=== PATIENT | male | born 1980 | race American Indian/Alaskan Native ===

== ENCOUNTER 2018-09-04 18:51 | Inpatient (IN) | payer OTHER ==
--- NOTE | 2018-09-04 19:02 | Emergency Department Report ---
Blank Doc - Documentation Documentation: This is a 38-year-old male with hx of Chorns disease presents with n/v abdominal pain. Stated has blood in vomiting. This initial assessment/diagnostic orders/clinical plan/treatment(s) is/are subject to change based on patient's health status, clinical progression and re-assessment by fellow clinical providers in the ED. Further treatment and workup at subsequent clinical providers discretion. Patient/guardians urged not to elope from the ED as their condition may be serious if not clinically assessed and managed. Initial orders include: 1- Patient sent to MAIN ED for further evaluation and treatment 2- labs 3- XRAY 4- UA
[2018-09-04] MEDS ORDERED: NACL 0.9% 1000 ML 1,000 ML IV ONE (19:24)
[2018-09-04] MEDS ORDERED: ZOFRAN IV ONE (19:24)
[2018-09-04] MEDS ORDERED: DILAUDID IV ONE ×2 (19:25→21:10)
[2018-09-04] MEDS ORDERED: PROTONIX IV ONE (20:24)
--- NOTE | 2018-09-04 20:24 | XRay Report ---
PROCEDURE: XR ABD SERIES W CXR 1V TECHNIQUE: Abdominal series complete, including supine and upright AP views of the abdomen and front al chest. HISTORY: abd pain COMPARISONS: None . FINDINGS: Heart: Normal. Mediastinum/Vessels: Normal. Lungs/Pleural space: No infiltrate, effusion, or pneumothorax. Bowel gas pattern: Bowel gas pattern is nonobstructive. There is large volume of stool the colon . Masses or calcifications: None . Bony structures: No acute osseous abnormality . Other: No free intraperitoneal air . IVC filter is present IMPRESSION: Nonobstructive bowel gas pattern. Large volume of stool seen in the colon. This document is electronically signed by Guadalupe Thompson MD., September 04 2018 08:22:30 PM ET
[2018-09-04 20:30] LABS: Basophils # (Auto) 0.1 K/mm3 (0.0-0.1); Basophils % (Auto) 1.5 % (0.0-1.8); Eosinophils % (Auto) 0.5 % (0.0-4.3); Hematocrit 35.2 % (35.5-45.6); Hemoglobin 11.4 gm/dl (11.8-15.2); Lymphocytes % (Auto) 16.5 % (13.4-35.0); Mean Corpuscular HGB Conc 32 % (32-34); Mean Corpuscular Volume 80 fl (84-94); Monocytes # (Auto) 0.4 K/mm3 (0.0-0.8); Monocytes % (Auto) 7.5 % (0.0-7.3); Platelet Count 249 K/mm3 (140-440); Red Blood Count 4.38 M/mm3 (3.65-5.03)
[2018-09-04 20:36] LABS: Red Cell Distribution Width 21.7 % (13.2-15.2)
[2018-09-04 20:47] LABS: Alanine Aminotransferase 20 units/L (7-56); Albumin 3.6 g/dL (3.9-5); BUN/Creatinine Ratio 10; Blood Urea Nitrogen 6 mg/dL (9-20); Calcium 9.8 mg/dL (8.4-10.2); Hemolysis Index 38
[2018-09-04] MEDS: PROTONIX 80 MG in NACL 0.9% 100 ML IV SCH (21:18)
[2018-09-04 21:23] LABS: INR 1.08 (0.87-1.13); Partial Thromboplastin Time 27.2 Sec. (24.2-36.6)
--- NOTE | 2018-09-04 21:23 | Emergency Department Report ---
ED GI Bleed HPI - General Chief complaint: GI Bleed Stated complaint: SPITTING UP BLOOD Time Seen by Provider: 09/04/18 19:00 Source: patient Mode of arrival: Wheelchair Limitations: No Limitations - History of Present Illness Initial comments: 38-year-old male reports history of Crohn's disease. Patient states he has been having bloody emesis since this morning. Denies any blood in his stool, reports epigastric pain. Patient states he is currently on Eliquis is for PE. Patient [facility] complaint: gross hematemesis -: This morning Location: epigastric Radiation: other (diffuse abdomen) Severity scale (0 -10): 9 Quality: cramping Consistency: constant Improves with: none Worsens with: none Context: history of GI bleed Associated Symptoms: abdominal pain, nausea, vomiting - Related Data Home Medications Medication Instructions Recorded Confirmed Last Taken Mesalamine [Pentasa] 250 mg PO QID 01/19/16 09/17/16 Unknown Previous Rx's Medication Instructions Recorded Last Taken Type Ondansetron [Zofran Odt] 4 mg PO Q8HR #12 tab.rapdis 09/21/16 Unknown Rx Oxycodone HCl/Acetaminophen 1 each PO Q6HR PRN #20 tablet 09/21/16 Unknown Rx [Percocet 7.5/325 mg] Prednisone [predniSONE 10 mg 10 mg PO .TAPER #1 tab.ds.pk 09/21/16 Unknown Rx (6-Day Pack, 21 Tabs)] Allergies Allergy/AdvReac Type Severity Reaction Status Date / Time morphine Allergy Itching Verified 01/27/13 02:21 ED Review of Systems ROS: Stated complaint: SPITTING UP BLOOD Other details as noted in HPI Comment: All other systems reviewed and negative Constitutional: denies: chills, fever Gastrointestinal: abdominal pain, nausea, vomiting, hematemesis. denies: diarrhea, melena, hematochezia ED Past Medical Hx - Past Medical History Previous Medical History?: Yes Hx Congestive Heart Failure: No Hx Diabetes: No Hx Deep Vein Thrombosis: No Hx Asthma: No Hx COPD: No Additional medical history: chrons / SBO - Surgical History Past Surgical History?: Yes Hx Pacemaker: No Hx Internal Defibrillator: No Hx Cholecystectomy: (yes. 2010) Additional Surgical History: SBO - Social History Smoking Status: Never Smoker Substance Use Type: None - Medications Home Medications: Home Medications Medication Instructions Recorded Confirmed Last Taken Type Mesalamine [Pentasa] 250 mg PO QID 01/19/16 09/17/16 Unknown History Ondansetron [Zofran Odt] 4 mg PO Q8HR #12 tab.rapdis 09/21/16 Unknown Rx Oxycodone HCl/Acetaminophen 1 each PO Q6HR PRN #20 tablet 09/21/16 Unknown Rx [Percocet 7.5/325 mg] Prednisone [predniSONE 10 mg 10 mg PO .TAPER #1 tab.ds.pk 09/21/16 Unknown Rx (6-Day Pack, 21 Tabs)] ED Physical Exam - General Limitations: No Limitations General appearance: alert, in no apparent distress - Head Head exam: Present: atraumatic, normocephalic - Eye Eye exam: Present: normal appearance - ENT ENT exam: Present: other (dried blood on lips) - Neck Neck exam: Present: normal inspection - Respiratory Respiratory exam: Present: normal lung sounds bilaterally. Absent: respiratory distress - Cardiovascular Cardiovascular Exam: Present: normal rhythm, tachycardia - GI/Abdominal GI/Abdominal exam: Present: soft, tenderness (mild epigastric tenderness). Absent: distended - Extremities Exam Extremities exam: Present: normal inspection - Neurological Exam Neurological exam: Present: alert, oriented X3 - Psychiatric Psychiatric exam: Present: normal affect, normal mood - Skin Skin exam: Present: warm, dry, intact, normal color ED Course Vital Signs 09/04/18 09/04/18 09/04/18 19:07 19:56 20:26 Temperature 97.9 F Pulse Rate 109 H Respiratory 18 16 18 Rate Blood Pressure 176/133 O2 Sat by Pulse 98 Oximetry 09/04/18 09/04/18 09/04/18 20:30 20:45 21:00 Temperature Pulse Rate 105 H 106 H 110 H Respiratory 27 H 26 H 28 H Rate Blood Pressure 191/116 194/119 184/115 O2 Sat by Pulse 100 100 100 Oximetry 09/04/18 09/04/18 09/04/18 21:10 21:15 21:30 Temperature Pulse Rate 106 H 101 H Respiratory 18 27 H 15 Rate Blood Pressure 167/89 188/121 O2 Sat by Pulse 96 97 Oximetry 06/17/19 06/17/19 06/17/19 21:40 21:45 22:00 Temperature Pulse Rate 100 H 105 H Respiratory 18 25 H 19 Rate Blood Pressure 182/112 174/126 O2 Sat by Pulse 99 95 100 Oximetry 09/04/18 09/04/18 09/04/18 22:14 22:15 22:16 Temperature Pulse Rate 100 H 101 H Respiratory 18 22 Rate Blood Pressure 193/123 195/111 O2 Sat by Pulse 98 Oximetry 09/04/18 09/04/18 09/04/18 22:30 22:44 23:40 Temperature Pulse Rate 102 H 100 H Respiratory 26 H 20 23 Rate Blood Pressure 174/103 150/95 O2 Sat by Pulse 98 98 Oximetry 09/04/18 23:52 Temperature Pulse Rate Respiratory Rate Blood Pressure 174/103 O2 Sat by Pulse 88 Oximetry - Consultations Consultation #1: 09/04/18 21:23 Spoke w/ Dr Bauer. Keep NPO, will scope in the AM. ED Medical Decision Making - Lab Data Result diagrams: 09/05/18 03:43 09/05/18 03:43 - Radiology Data Radiology results: report reviewed, image reviewed - Medical Decision Making 38-year-old male with Crohn's disease presents to ED with report of 4 episodes of hematemesis. Hemoglobin 11.4. Pt mildly tachycardic. Protonix bolus and drip administered. Pain meds given. Abdominal series shows no acute abnormality such as bowel obstruction or free air. Spoke w/ Dr Bauer, GI, will see in the AM. Pt admitted to Dr Olivera, hospitalist. - Differential Diagnosis alton branham, ulcer, perforated viscus Critical Care Time: Yes Critical care time in (mins) excluding proc time.: 35 Critical care attestation.: If time is entered above; I have spent that time in minutes in the direct care of this critically ill patient, excluding procedure time. Critical Care Time: 35 minutes ED Disposition Clinical Impression: Upper GI bleed Disposition: OP ADMIT IP TO THIS HOSP Is pt being admited?: Yes Condition: Stable Time of Disposition: 21:23
[2018-09-04 22:14] LABS: Bilirubin,Urine NEG (Negative); Blood,Urine NEG (Negative); Color,Urine Yellow (Yellow); Protein,Urine <15 mg/dL mg/dL (Negative); Urobilinogen,Urine < 2.0 mg/dL (<2.0); WBC,Urine < 1.0 /HPF (0.0-6.0)
[2018-09-04] MEDS: DILAUDID IV PRN (22:14)
[2018-09-04] MEDS: APRESOLINE IV PRN (22:15)
[2018-09-04] MEDS: NACL 0.45% 1000 ML 1,000 ML IV SCH (22:16)
[2018-09-04] MEDS ORDERED: SODIUM CHLORIDE FLUSH SYRINGE 10 ML IV PRN (22:47)
[2018-09-04] MEDS ORDERED: TYLENOL PO PRN (22:47)
--- NOTE | 2018-09-04 22:50 | History and Physical Report ---
History of Present Illness Date of examination: 09/04/18 History of present illness: 38-year-old man with a history of Crohn's disease, PE/ DVT on eliquis, recent endocarditis with tricuspid valve replacement, small bowel obstructions comes to emergency room with complaints of vomiting blood at least 6 episodes. Also p donald abdominal pain located in the left mid abdomen which she describes as a sharp pain, intermittent over 5 minutes then became constant and 4 PM, intensity 8/10, no radiation, better with IV Dilaudid given in the emergency room and he cannot identify exacerbating factors. Review of systems Constitutional: no weight loss, chills, fever Ears, eyes, nose, mouth and throat: no nasal congestion, no nasal discharge, no sinus pressure, no vision change, no red eye. Neck: No neck pain or rigidity. Cardiovascular: no palpitations, chest pain Respiratory: no cough, shortness of breath Gastrointestinal: no hematochezia Genitourinary : no frequency , no hematuria Musculoskeletal: no joint swelling or muscle ache Integumentary: no rash, no pruritis Neurological: no parathesias, no focal weakness Endocrine: no cold or heat intolerance, no polyuria or polydipsia Hematologic/Lymphatic: no easy bruising, no easy bleeding, no gland swelling Allergic/Immunologic: no urticaria, no angioedema. PAST MEDICAL HISTORY:Crohn's disease, PE DVT on eliquis, recent endocarditis, small bowel obstructions PAST SURGICAL HISTORY: tricuspid valve replacement, cholecystectomy, Part of the small bowel was removed secondary to obstruction SOCIAL HISTORY: Denies alcohol, tobacco, drugs FAMILY HISTORY: Hypertension Medications and Allergies Allergies Allergy/AdvReac Type Severity Reaction Status Date / Time morphine Allergy Itching Verified 01/27/13 02:21 Home Medications Medication Instructions Recorded Confirmed Last Taken Type Mesalamine [Pentasa] 250 mg PO QID 01/19/16 09/17/16 Unknown History Ondansetron [Zofran ODT TAB] 4 mg PO Q8HR #12 tab.rapdis 09/21/16 Unknown Rx Oxycodone HCl/Acetaminophen 1 each PO Q6HR PRN #20 tablet 09/21/16 Unknown Rx [Percocet 7.5/325 mg] Prednisone [predniSONE 10 mg 10 mg PO .TAPER #1 tab.ds.pk 09/21/16 Unknown Rx (6-Day Pack, 21 Tabs)] Active Meds: Active Medications Acetaminophen (Tylenol) 650 mg PO Q4H PRN PRN Reason: Pain MILD(1-3)/Fever >100.5/GARCIA Hydralazine HCl (Apresoline) 5 mg IV Q6H PRN PRN Reason: Hypertension Last Admin: 09/04/18 22:15 Dose: 5 mg Documented by: Hydromorphone HCl (Dilaudid) 1 mg IV Q4H PRN PRN Reason: Pain , Severe (7-10) Last Admin: 09/04/18 22:14 Dose: 1 mg Documented by: Pantoprazole Sodium 80 mg/ (Sodium Chloride) 100 mls @ 10 mls/hr IV DIRECT HARMONY Last Admin: 09/04/18 21:18 Dose: 8 mg/hr, 10 mls/hr Documented by: Sodium Chloride (Nacl 0.45% 1000 Ml) 1,000 mls @ 100 mls/hr IV DIRECT HARMONY Last Admin: 09/04/18 22:16 Dose: 100 mls/hr Documented by: Ondansetron HCl (Zofran) 4 mg IV Q4H PRN PRN Reason: Nausea And Vomiting Sodium Chloride (Sodium Chloride Flush Syringe 10 Ml) 10 ml IV BID HARMONY Sodium Chloride (Sodium Chloride Flush Syringe 10 Ml) 10 ml IV PRN PRN PRN Reason: LINE FLUSH Exam - Physical Exam Narrative exam: General Apperance: The patient lying in bed, breathing comfortable HEENT: Normocephalic, atraumatic. Pupils equally round and reactive to light, EOMI, no sclericterus or JVD or thyromegaly or nodule. , no carotid bruit, mucous membranes moist, no exudate or erythema Heart: S1-S2, regular is rhythm Lungs: Clear to auscultation bilaterally, breathing comfortable Abdomen: Positive bowel sounds, soft, nontender, nondistended, no organomegaly Extremities: No edema cyanosis clubbing Skin: no rash, nodule, warm and dry Neuro: cranial nerves 2-12 intact, speech is fluent, motor/sensory intact - Constitutional Vitals: Temp Pulse Resp BP Pulse Ox 97.9 F 100 H 18 193/123 99 09/04/18 19:07 09/04/18 22:15 09/04/18 22:14 09/04/18 22:15 09/04/18 21:40 Results - Labs CBC & Chem 7: 09/05/18 14:53 09/05/18 03:43 Labs: Abnormal lab results 09/04/18 09/04/18 Range/Units 20:00 20:00 Hgb 11.4 L (11.8-15.2) gm/dl Hct 35.2 L (35.5-45.6) % MCV 80 L (84-94) fl MCH 26 L (28-32) pg RDW 21.7 H (13.2-15.2) % [place] % (Auto) 7.5 H (0.0-7.3) % Lymph # 1.0 L (1.2-5.4) K/mm3 Seg Neutrophils % 74.0 H (40.0-70.0) % Potassium 3.3 L (3.6-5.0) mmol/L BUN 6 L (9-20) mg/dL Creatinine 0.6 L (0.8-1.5) mg/dL Glucose 139 H (75-100) mg/dL Albumin 3.6 L (3.9-5) g/dL - Imaging and Cardiology EKG: image reviewed Chest x-ray: report reviewed Abdominal x-ray: report reviewed Assessment and Plan Assessment Hematemesis Abdominal pain Elevated blood pressure Hypokalemia History of PE, DVT Crohn's disease History of endocarditis Plan Admit to medicine Continue Protonix drip, consult GI, check serial hemoglobin, hold eliquis Monitor blood pressure, start IV hydralazine, first dose now Check CT abdomen and pelvis, replete potassium IV dilaudid,iv fluid, DVT prophylaxis
--- NOTE | 2018-09-04 23:29 | Cat Scan Report ---
PROCEDURE: CT ABDOMEN PELVIS W CON TECHNIQUE: Computerized axial tomography of the abdomen and pelvis was performed after the administr ation of IV iodinated nonionic contrast. CT DOSE LENGTH PRODUCT: 3651.9 mGycm HISTORY: abdominal pain COMPARISONS: September 17, 2016 . FINDINGS: Visualized lower thorax: Mild atelectasis bilateral lower lungs.. Liver: Normal size and attenuation. Spleen: Normal size and attenuation. Gallbladder and biliary system: The gallbladder is absent. No dilatation of the biliary ductal system . Pancreas: Normal. Adrenals: Normal. Kidneys: Normal. GI tract: No obstruction is seen. There has been surgery in the mid bowel. There are surgical clips in the right lower quadrant, appendectomy is suspected. There is moderate fecal debris throughout the colon. .. Lymph nodes and mesentery: There are multiple scattered small lymph nodes and mesentery.. Vasculature: There is an inferior vena cava filter. Bladder: Normal. Reproductive organs: Normal. Peritoneum: No free fluid. Musculoskeletal structures: Mild degenerative changes of the spine. No acute osseous abnormality.. Other: None. IMPRESSION: There is no evidence of intestinal or urinary tract obstruction. No ileus or enteritis. There is mode rate fecal debris throughout the colon. Surgical clips in the right lower quadrant are most consisten t with previous appendectomy. Previous cholecystectomy . This document is electronically signed by Julieth Griffiths DO., September 04 2018 11:27:18 PM ET
[2018-09-04] MEDS ORDERED: KCL 10MEQ/100ML 10 MEQ/100 ML BAG IV ONE (23:30)
[2018-09-04] MEDS: KCL 10MEQ/100ML 10 MEQ/100 ML BAG IV SCH (23:43)
[2018-09-05 00:55] LABS: Hematocrit 35.1 % (35.5-45.6); Hemoglobin 11.5 gm/dl (11.8-15.2)
[2018-09-05] MEDS: DILAUDID IV PRN ×4 (02:08→13:18)
[2018-09-05] MEDS: ZOFRAN IV PRN ×3 (02:08→13:19)
[2018-09-05] MEDS: KCL 10MEQ/100ML 10 MEQ/100 ML BAG IV SCH (02:08)
[2018-09-05] MEDS: APRESOLINE IV PRN (03:39)
[2018-09-05 04:12] LABS: Basophils # (Auto) 0.1 K/mm3 (0.0-0.1); Basophils % (Auto) 1.1 % (0.0-1.8); Eosinophils # (Auto) 0.1 K/mm3 (0.0-0.4); Eosinophils % (Auto) 1.9 % (0.0-4.3); Hematocrit 31.3 % (35.5-45.6); Hemoglobin 10.3 gm/dl (11.8-15.2); Lymphocytes # (Auto) 1.4 K/mm3 (1.2-5.4); Lymphocytes % (Auto) 30.3 % (13.4-35.0); Mean Corpuscular HGB Conc 33 % (32-34); Mean Corpuscular Volume 78 fl (84-94); Monocytes # (Auto) 0.6 K/mm3 (0.0-0.8); Platelet Count 205 K/mm3 (140-440); Red Cell Distribution Width 21.3 % (13.2-15.2)
[2018-09-05 04:24] LABS: BUN/Creatinine Ratio 12; Blood Urea Nitrogen 6 mg/dL (9-20); Calcium 9.5 mg/dL (8.4-10.2); Hemolysis Index 49
[2018-09-05] MEDS: NACL 0.45% 1000 ML 1,000 ML IV SCH (06:19)
[2018-09-05] MEDS: PROTONIX 80 MG in NACL 0.9% 100 ML IV SCH (07:32)
[2018-09-05] MEDS ORDERED: APRESOLINE IV PRN (07:57)
[2018-09-05 08:25] VITALS: BP 168/120
[2018-09-05] MEDS ORDERED: SODIUM CHLORIDE FLUSH SYRINGE 10 ML IV SCH (10:00)
--- NOTE | 2018-09-05 12:14 | Gastroenterology Consultation ---
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 He was dx with Crohn's in 2000 while in the and has had multiple abdominal surgeries (~5-6) including CCY, hernia repairs, and small bowel resections for obstruction (no prior colon resection per pt report). He receives all of his care for his [facility] at [facility] and is currently being maintained on mesalamine. The patient is well known to our service from numerous admissions at multiple hospitals for the same chronic recurrent symptoms of abd pain, N/V, and recurrent hematemesis. He was underwent an extensive prior GI workup to include multiple scopes (EGDs on 03/17/18, 12/02/17, 12/01/17, 11/30/17, 07/2017, 06/2017, 01/2017, 12/2016, 12/15/2016, 09/2016, 04/2016, 03/09/2016, 01/2016, 05/2015, 06/03/2015, 08/25/2015, 01/19/2016, 07/2015, 03/2015, 12/18/2014, 12/19/2014, 12/24/2014, 09/2014, 09/2012 and colonoscopy 12/2014, along with multiple CT scans). He was last seen at [facility] on 04/11/[address] Meza for same symptoms with symptoms resolving with conservative management (of note during this admission, there was concern by RN in ED that patient obtained blood from a missing vial and deposited it into his emesis claiming an episode of hematemesis). This morning patient was resting in bed w/o acute distress. Reports continued abdominal pain w/o change from prior episodes, along with continued hematemesis x 1 episode this am, however there has been no witnessed signs of bleeding per nursing. Denies CP, SOB, blood in stool or LGI symptoms. States he has been compliant with taking medications for IBD at home. Past History Past Medical History: other (see HPI) Past Surgical History: Other (see HPI) Social history: prescription drug abuse, other (previous UDS +marijuana). denies: alcohol abuse Family history: hypertension Medications and Allergies Allergies Allergy/AdvReac Type Severity Reaction Status Date / Time morphine Allergy Itching Verified 01/27/13 02:21 Home Medications Medication Instructions Recorded Confirmed Last Taken Type Mesalamine [Pentasa] 250 mg PO QID 01/19/16 09/17/16 Unknown History Ondansetron [Zofran ODT TAB] 4 mg PO Q8HR #12 tab.rapdis 09/21/16 Unknown Rx Oxycodone HCl/Acetaminophen 1 each PO Q6HR PRN #20 tablet 09/21/16 Unknown Rx [Percocet 7.5/325 mg] Prednisone [predniSONE 10 mg 10 mg PO .TAPER #1 tab.ds.pk 09/21/16 Unknown Rx (6-Day Pack, 21 Tabs)] Active Meds: Active Medications Acetaminophen (Tylenol) 650 mg PO Q4H PRN PRN Reason: Pain MILD(1-3)/Fever >100.5/GARCIA Hydralazine HCl (Apresoline) 10 mg IV Q4HR PRN PRN Reason: Hypertension Last Admin: 09/05/18 08:11 Dose: 10 mg Documented by: Hydromorphone HCl (Dilaudid) 1 mg IV Q4H PRN PRN Reason: Pain , Severe (7-10) Last Admin: 09/05/18 09:23 Dose: 1 mg Documented by: Pantoprazole Sodium 80 mg/ (Sodium Chloride) 100 mls @ 10 mls/hr IV DIRECT HARMONY Last Admin: 09/05/18 07:32 Dose: 8 mg/hr, 10 mls/hr Documented by: Sodium Chloride (Nacl 0.45% 1000 Ml) 1,000 mls @ 100 mls/hr IV DIRECT HARMONY Last Admin: 09/05/18 06:19 Dose: 100 mls/hr Documented by: Ondansetron HCl (Zofran) 4 mg IV Q4H PRN PRN Reason: Nausea And Vomiting Last Admin: 09/05/18 09:23 Dose: 4 mg Documented by: Sodium Chloride (Sodium Chloride Flush Syringe 10 Ml) 10 ml IV BID HARMONY Last Admin: 09/05/18 09:32 Dose: 10 ml Documented by: Sodium Chloride (Sodium Chloride Flush Syringe 10 Ml) 10 ml IV PRN PRN PRN Reason: LINE FLUSH medications reviewed/updated as required Review of Systems - Review of Systems All systems: negative Gastrointestinal: abdominal pain, nausea, vomiting, hematemesis Exam - Constitutional Vital Signs: Temp Pulse Resp BP Pulse Ox 98.5 F 111 H 16 168/120 99 09/05/18 07:44 09/05/18 08:11 09/05/18 07:44 09/05/18 08:11 09/05/18 09:42 General appearance: no acute distress - Respiratory Respiratory effort: normal - Cardiovascular Rhythm: other (tachycardia) - Gastrointestinal General gastrointestinal: Present: soft, tender (generalized slight TTP), non- distended, normal bowel sounds, other (+scars from prior surgeries) - Neurologic Neurological: alert and oriented x3 - Labs CBC & Chem 7: 09/05/18 03:43 09/05/18 03:43 Lab Results: Laboratory Results - last 24 hr 09/04/18 09/04/18 09/04/18 20:00 20:00 20:51 WBC 5.8 RBC 4.38 Hgb 11.4 L Hct 35.2 L MCV 80 L MCH 26 L MCHC 32 RDW 21.7 H Plt Count 249 Lymph % (Auto) 16.5 Quay % (Auto) 7.5 H Eos % (Auto) 0.5 Baso % (Auto) 1.5 Lymph # 1.0 L Quay # 0.4 Eos # 0.0 Baso # 0.1 Seg Neutrophils % 74.0 H Seg Neutrophils # 4.3 PT 13.7 INR 1.08 APTT 27.2 Sodium 138 Potassium 3.3 L Chloride 102.4 Carbon Dioxide 22 Anion Gap 17 BUN 6 L Creatinine 0.6 L Estimated GFR > 60 BUN/Creatinine Ratio 10 Glucose 139 H Calcium 9.8 Total Bilirubin 1.20 AST 28 ALT 20 Alkaline Phosphatase 78 Total Protein 7.7 Albumin 3.6 L Albumin/Globulin Ratio 0.9 Lipase 14 Urine Color Urine Turbidity Urine pH Ur Specific [place] Urine Protein Urine Glucose (UA) Urine Ketones Urine Blood Urine Nitrite Urine Bilirubin Urine Urobilinogen Ur Leukocyte Esterase Urine WBC (Auto) Urine RBC (Auto) U Epithel Cells (Auto) Blood Type Antibody Screen 09/04/18 09/04/18 09/05/18 21:11 21:30 00:25 WBC RBC Hgb 11.5 L Hct 35.1 L MCV MCH MCHC RDW Plt Count Lymph % (Auto) Quay % (Auto) Eos % (Auto) Baso % (Auto) Lymph # Quay # Eos # Baso # Seg Neutrophils % Seg Neutrophils # PT INR APTT Sodium Potassium Chloride Carbon Dioxide Anion Gap BUN Creatinine Estimated GFR BUN/Creatinine Ratio Glucose Calcium Total Bilirubin AST ALT Alkaline Phosphatase Total Protein Albumin Albumin/Globulin Ratio Lipase Urine Color Yellow Urine Turbidity Clear Urine pH 6.0 Ur Specific [place] 1.010 Urine Protein <15 mg/dl Urine Glucose (UA) Neg Urine Ketones Neg Urine Blood Neg Urine Nitrite Neg Urine Bilirubin Neg Urine Urobilinogen < 2.0 Ur Leukocyte Esterase Neg Urine WBC (Auto) < 1.0 Urine RBC (Auto) 1.0 U Epithel Cells (Auto) < 1.0 Blood Type A POSITIVE Antibody Screen Negative 09/05/18 09/05/18 03:43 03:43 WBC 4.8 RBC 4.00 Hgb 10.3 L Hct 31.3 L MCV 78 L MCH 26 L MCHC 33 RDW 21.3 H Plt Count 205 Lymph % (Auto) 30.3 Quay % (Auto) 12.0 H Eos % (Auto) 1.9 Baso % (Auto) 1.1 Lymph # 1.4 Quay # 0.6 Eos # 0.1 Baso # 0.1 Seg Neutrophils % 54.7 Seg Neutrophils # 2.6 PT INR APTT Sodium 140 Potassium 3.8 Chloride 105.4 Carbon Dioxide 23 Anion Gap 15 BUN 6 L Creatinine 0.5 L Estimated GFR > 60 BUN/Creatinine Ratio 12 Glucose 89 Calcium 9.5 Total Bilirubin AST ALT Alkaline Phosphatase Total Protein Albumin Albumin/Globulin Ratio Lipase Urine Color Urine Turbidity Urine pH Ur Specific [place] Urine Protein Urine Glucose (UA) Urine Ketones Urine Blood Urine Nitrite Urine Bilirubin Urine Urobilinogen Ur Leukocyte Esterase Urine WBC (Auto) Urine RBC (Auto) U Epithel Cells (Auto) Blood Type Antibody Screen Assessment and Plan 1.recurrent hematemesis 2.chronic anemia 3.abdominal pain-chronic 4.N/V-recurrent 5.H/o Crohn's disease- (dx 2000; h/o multiple prior abdominal surgeries 2/2 SBO; no colon resection; [facility]; currently maintained on mesalamine; multiple prior scope by our service with no e/o IBD) 6.H/o DVT (s/p IVC filter) 7.medical noncompliance/drug seeking behavior (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) -afebrile -WBC WNL -H/H 10.3/31.3-stable according to review of prior labs -continue to monitor H/H and transfuse as needed -no active signs of bleeding since admission per nursing -INR WNL -LFTs and lipase WNL -abd CT negative for acute process-no obstruction -etiology- likely multifactorial (multiple prior abdominal surgeries (adhesions?), substance abuse, etc.) Patient has a hx of chronic recurrent abd pain, N/V, and hematemesis with an extensive prior GI workup as detailed in HPI -no plans for repeat scope at this time unless overt bleeding develops- will treat with supportive care at this time -continue PPI BID and antiemetics PRN -avoid narcotics for this may exacerbate symptoms of N/V by delaying gastric emptying -start on clears and advance diet as tolerated -continue supportive care -substance abuse cessation discussed with patient -if H/H remains stable, patient is okay to be d/c per GI standpoint with f/u with primary GI <UZAIR CONLEY - Last Filed: 09/05/18 23:47> Exam - Constitutional Vital Signs: Temp Pulse Resp BP Pulse Ox 98.5 F 111 H 16 168/120 99 09/05/18 07:44 09/05/18 08:11 09/05/18 07:44 09/05/18 08:11 09/05/18 09:42 - Labs CBC & Chem 7: 09/05/18 14:53 09/05/18 03:43 Lab Results: Laboratory Results - last 24 hr 09/05/18 09/05/18 09/05/18 00:25 03:43 03:43 WBC 4.8 RBC 4.00 Hgb 11.5 L 10.3 L Hct 35.1 L 31.3 L MCV 78 L MCH 26 L MCHC 33 RDW 21.3 H Plt Count 205 Lymph % (Auto) 30.3 Quay % (Auto) 12.0 H Eos % (Auto) 1.9 Baso % (Auto) 1.1 Lymph # 1.4 Quay # 0.6 Eos # 0.1 Baso # 0.1 Seg Neutrophils % 54.7 Seg Neutrophils # 2.6 Sodium 140 Potassium 3.8 Chloride 105.4 Carbon Dioxide 23 Anion Gap 15 BUN 6 L Creatinine 0.5 L Estimated GFR > 60 BUN/Creatinine Ratio 12 Glucose 89 Calcium 9.5 09/05/18 14:53 WBC RBC Hgb 12.3 Hct 38.5 D MCV MCH MCHC RDW Plt Count Lymph % (Auto) Quay % (Auto) Eos % (Auto) Baso % (Auto) Lymph # Quay # Eos # Baso # Seg Neutrophils % Seg Neutrophils # Sodium Potassium Chloride Carbon Dioxide Anion Gap BUN Creatinine Estimated GFR BUN/Creatinine Ratio Glucose Calcium Assessment and Plan Advanced practitioner's assessment and plan evaluated and I agree with the plan, with the following additions: pt not in acute distress when seen this AM, has highly concerning history that raises the suspicion of drug seeking behavior -- this does not preclude severe pathology from being present but makes it much more challenging to assess the patient. Given the history and objectively attainable data, recommend monitor Hgb and avoid pain meds and if Hgb stable ok for DC with OPD f/u
[2018-09-05 15:21] LABS: Hematocrit 38.5 % (35.5-45.6); Hemoglobin 12.3 gm/dl (11.8-15.2)
--- NOTE | 2018-09-05 15:34 | Discharge Summary ---
Providers - Providers Date of Admission: 09/04/18 22:47 Attending physician: JENNIFRE BOWLES MD 09/04/18 22:47 Consult to Physician [CONS] Routine Comment: Dr. Pichardo spoke with Dr. Bauer @ [id number] Consulting Provider: DRAKE BAUER Physician Instructions: Reason For Exam: ugib Primary care physician: [facility] Hospitalization Reason for admission: GI bleed, abdominal pain Condition: Stable Hospital course: 38-year-old man with a history of Crohn's disease, PE/ DVT on eliquis, recent endocarditis with tricuspid valve replacement, small bowel obstructions comes to emergency room with complaints of vomiting blood at least 6 episodes. Also plain abdominal pain located in the left mid abdomen which she describes as a sharp pain, intermittent over 5 minutes then became constant and 4 PM, intensity 8/10, no radiation, better with IV Dilaudid given in the emergency room and he cannot identify exacerbating factors. Patient was admitted to the floor and GI was consulted. Per GI the patient left AMA from [facility] the day before admission. Patient had multiple admissions to different hospitals and had extensive GI work up and non revealing. He had also multiple surgeries. per his record from another hospital patient has drug seeking behavior. While in the hospital patient said he had vomiting of blood but not witnessed by hospital staff. He was asking for more pain medicine. H/H stable. GI cleared him for discharge. Patient was hemodynamically stable at the time of discharge. Disposition: TO HOME OR SELFCARE Time spent for discharge: 32 minutes - Discharge Diagnoses (1) Upper GI hemorrhage Status: Acute (2) Abdominal pain Status: Acute Qualifiers: Abdominal location: generalized Qualified Code(s): R10.84 - Generalized abdominal pain (3) Crohn's disease (regional enteritis) Status: Chronic Qualifiers: Gastrointestinal tract location: small intestine Digestive disease complication type: unspecified complication Qualified Code(s): K50.019 - Crohn's disease of small intestine with unspecified complications (4) Hemoptysis, unspecified Status: Acute Core Measure Documentation - Palliative Care Palliative Care/ Comfort Measures: Not Applicable - Core Measures Any of the following diagnoses?: none Exam - Physical Exam Narrative exam: Not in cardiopulmonary distress. The patient appeared well nourished and normally developed. Vital signs as documented. Head exam is unremarkable. No scleral icterus . Neck is without jugular venous distension, thyromegaly, or carotid bruits. Lungs are clear to auscultation. Cardiac exam reveals regular rate and Rhythm. First and second heart sounds normal. No murmurs, rubs or gallops. Abdominal exam reveals normal bowel sounds, no masses, no organomegaly and no aortic enlargement. Extremities are nonedematous and both femoral and pedal pulses are normal. [employer] BUILDING [employer]PER[employer]: Alert and oriented 3. No focal weakness. - Constitutional Vitals: Temp Pulse Resp BP Pulse Ox 98.5 F 111 H 16 168/120 99 09/05/18 07:44 09/05/18 08:11 09/05/18 07:44 09/05/18 08:11 09/05/18 09:42 Plan Activity: no restrictions Weight Bearing Status: Full Weight Bearing Diet: advance as tolerated Follow up with: [facility] [Primary Care Provider] - 3-5 Days Forms: Accompanied Note
[2018-09-05] MEDS ORDERED: PROTONIX PO SCH (22:00)
== END 2018-09-05 17:02 | disposition home or self-care (01) | DRG 378 ==
LOC: ED 18:51 → 4A 22:47
PROVIDERS: ADMIT Internal Medicine; ATTEND Internal Medicine
DX: K92.0 Hematemesis (principal); K50.90 Crohn's disease, unspecified, without complications; R04.2 Hemoptysis; E87.6 Hypokalemia; R10.9 Unspecified abdominal pain; Z86.711 Personal history of pulmonary embolism; Z79.01 Long term (current) use of anticoagulants; Z88.5 Allergy status to narcotic agent; Z90.49 Acquired absence of other specified parts of digestive tract; Z86.718 Personal history of other venous thrombosis and embolism; Z95.2 Presence of prosthetic heart valve
CPT/HCPCS: 36415; 74022; 74177; 80048; 80053; 81001; 83690; 85014; 85018; 85025; 85610; 85730; 86850; 86900; 86901; 87116; 96361; 96365; 96375; 96376; G0378; C9113; J0360; J1170; J2405; J3480; J7030; Q9967